=== PATIENT | female | born 1965 | race Caucasian/White ===

== ENCOUNTER → 2017-11-18 | Outpatient (CLI) | payer BC ==
[~2017-11-18] MED LIST: CEPH500 PO; CYCL10 PO; Dazidox10 MG PO; HYDACE5 PO; LEVSOD50 PO; METCAR500 PO; METPRE4DP PO; MUSCLE RELAXANT; OXYACE5T PO; Percocet 5-3251 EACH PO; Pyridium200 MG PO
== END | disposition home or self-care (01) ==
LOC: LAB EV 14:44
DX: N39.0 Urinary tract infection, site not specified (principal)
CPT/HCPCS: 87077; 87086; 87186

== ENCOUNTER 2018-05-26 03:50 | Emergency (ER) | payer BC ==
[~2018-05-26] VITALS: Ht 162.6 cm; Wt 68.0 kg
[~2018-05-26 03:50] MED LIST changes: -CEPH500 PO; -Pyridium200 MG PO
[2018-05-26 04:22] LABS: Source, Urine Clean Catch
[2018-05-26 04:24] LABS: Bilirubin, Urine Neg (Neg); Blood, Urine 5+ (Neg); Glucose Qualitative, Urine Neg (Neg); Ketones, Urine Neg (Neg); Leukocyte Esterase, Urine 3+ (Neg); Nitrite, Urine Neg (Neg); Protein, Urine 3+ (Neg); Urobilinogen, Urine NORM (Normal)
[2018-05-26 04:37] LABS: Appearance, Urine Cloudy (Clear); Color, Urine Yellow (P-Yellow)
[2018-05-26 04:48] LABS: Bacteria Mod /hpf; Red Blood Cells, Urine TNTC /hpf (0-2); Squamous Epithelial Cells Rare /hpf (Few); White Blood Cells, Urine 25-50 /hpf (0-5)
[2018-05-26] MEDS ORDERED: CEPH500 PO (05:01)
[2018-05-26] MEDS ORDERED: Pyridium200 MG PO (05:15)
== END 2018-05-26 05:35 | disposition home or self-care (01) ==
LOC: ER 03:50
PROVIDERS: Emergency Medicine
DX: N39.0 Urinary tract infection, site not specified (principal); Z88.2 Allergy status to sulfonamides; Z79.899 Other long term (current) drug therapy
CPT/HCPCS: 81001; 87077; 87086; 87186; 99283

== ENCOUNTER → 2018-06-11 | Outpatient (CLI) | payer BC ==
[~2018-06-11] MED LIST changes: +CEPH500 PO; +Pyridium200 MG PO
[2018-06-11 15:07] LABS: Source, Urine Clean Catch
[2018-06-11 15:23] LABS: Bacteria Not Seen /hpf; Red Blood Cells, Urine Not Seen /hpf (0-2); Squamous Epithelial Cells Few /hpf (Few); White Blood Cells, Urine 0-2 /hpf (0-5)
== END | disposition home or self-care (01) ==
LOC: LAB EV 15:05 → LAB SHORT 15:05
PROVIDERS: Physician Assistant
DX: R30.0 Dysuria (principal)
CPT/HCPCS: 81015

== ENCOUNTER 2020-01-09 12:30 | Emergency (ER) | payer BC ==
[~2020-01-09] VITALS: Ht 162.6 cm; Wt 72.6 kg
[2020-01-09] MEDS ORDERED: Norco 5-325 Ta1 EACH PO (15:30)
[2020-01-09] MEDS ORDERED: ONDA4ODT MM (15:30)
[2020-01-09] MEDS ORDERED: Valium5 MG PO (15:30)
== END 2020-01-09 16:09 | disposition home or self-care (01) ==
LOC: ER 12:30
DX: S16.1XXA Strain of muscle, fascia and tendon at neck level, initial encounter (principal); G89.29 Other chronic pain; M54.5 Low back pain; Z88.2 Allergy status to sulfonamides; Z79.899 Other long term (current) drug therapy; W18.30XA Fall on same level, unspecified, initial encounter
CPT/HCPCS: 72040; 72100; 96374; 96375; 99283-25; J1170; J2060; J2405; J2930

== ENCOUNTER 2021-12-21 21:37 | Emergency (ER) | payer BC ==
[~2021-12-21] VITALS: Ht 162.6 cm; Wt 69.4 kg
[~2021-12-21 21:37] MED LIST changes: +Norco 5-325 Ta1 EACH PO; +ONDA4ODT MM; +Valium5 MG PO
== END 2021-12-21 23:05 | disposition home or self-care (01) ==
LOC: ER 21:37
DX: M54.50 Low back pain, unspecified (principal); Z88.2 Allergy status to sulfonamides; Z79.899 Other long term (current) drug therapy
CPT/HCPCS: 96372; 99283-25; J1885

== ENCOUNTER → 2023-02-18 | Outpatient (CLI) | payer BC ==
[2023-02-21 22:09] LABS: IGG P18 AB. Absent (.); IGG P23 AB. Absent (.); IGG P28 AB. Absent (.); IGG P30 AB. Absent (.); IGG P39 AB. Absent (.); IGG P41 AB. Absent (.); IGG P45 AB. Absent (.); IGG P58 AB. Absent (.); IGG P66 AB. Absent (.); IGG P93 AB. Absent (.); IGM P23 AB. Absent (.); IGM P39 AB. Absent (.); IGM P41 AB. Absent (.); LYME IGG LB INTERP. Negative (.); LYME IGM LB INTERP. Negative (.)
== END | disposition home or self-care (01) ==
LOC: LAB SHORT 10:45 → LAB 10:45
PROVIDERS: Family Medicine
DX: M79.7 Fibromyalgia (principal)
CPT/HCPCS: 86617